=== PATIENT | female | born 1975 ===

== ENCOUNTER 2019-02-25 10:26 | Outpatient (CLI) | payer BC ==
[~2019-02-25] VITALS: Ht 172.7 cm; Wt 72.6 kg
[2019-02-25 11:03] VITALS: BP 130/71
[2019-02-25] MEDS ORDERED: HUMIRA40 MG/0.2 SUBQ (11:29)
[2019-02-25] MEDS ORDERED: Lidocaine 1% Plain 30 ml INJ ONE (11:30)
--- NOTE | 2019-02-25 13:40 | NUR ---
Radiology procedure not done. Patient discharged with family member in no acute discomfort. Follow- up with PMD.
== END 2019-02-25 13:40 | disposition home or self-care (01) ==
LOC: ULS 10:26
DX: R52 Pain, unspecified (principal); Z53.9 Procedure and treatment not carried out, unspecified reason